=== PATIENT | male | born 1970 ===

== ENCOUNTER 2024-12-27 00:07 | Outpatient (RCR) | payer BC, SELFPAY ==
[2024-12-13 14:14] VITALS: BP 103/61; PULSE 70; RESP 18; TEMP 36.3; O2SAT 99
[2024-12-13] MEDS: Normal Saline Flush 10 ML SYR IVP (14:43)
[2024-12-25 09:30] LABS: Abs Immature Grans 0.02 10^3/uL (0.0-0.06); Absolute Basophil Count 0.07 10^3/uL (0.0-0.2); Absolute Eosinophil Count 0.46 10^3/uL (0.0-0.7); Absolute Monocyte Count 0.91 10^3/uL (0.1-0.8); Absolute Neutrophil Count 3.26 10^3/uL (1.2-6.7); Basophils % 1.1 %; Eosinophils % 6.9 %; HGB 13.3 g/dL (13.5-17.5); Immature Grans % 0.3 %; Lymphocytes % 28.7 %; MCH 31.8 pg (27.0-33.0); MCHC 33.3 % (32.0-36.0); MCV 96 fL (80-95); MPV 8.9 fL (8.0-11.0); Monocytes % 13.7 %; Neutrophils % 49.3 %; Platelet Count 357 10^3/uL (130-400); RBC 4.18 10^6/uL (4.36-5.78); RDW-SD 49.3 fL; WBC 6.62 10^3/uL (4.4-10.8)
[2024-12-25 10:55] LABS: ALT 54 U/L (16-63); AST 18 U/L (15-37); Albumin 3.6 g/dL (3.4-5.0); Alkaline Phosphatase 90 U/L (46-116); Anion Gap 5.6 mmol/L (3-11); BUN 19 mg/dL (7-18); Bilirubin, Total 0.9 mg/dL (0.2-1.0); CO2 28.4 mmol/L (21.0-32.0); CREATININE 0.9 mg/dL (0.70-1.30); Calcium 8.9 mg/dL (8.5-10.1); Chloride 104 mmol/L (98-107); Estimated GFR 102.76 (mL/min/1.73m2); Glucose 113 mg/dL (74-106); Sodium 138 mmol/L (136-145); Total Protein 7.2 g/dL (6.4-8.2)
[2024-12-25] MEDS: Normal Saline Flush 10 ML SYR IVP (11:10)
[2024-12-27 12:43] VITALS: BP 96/58; PULSE 61; RESP 16; TEMP 36.4; O2SAT 100
[2024-12-27] MEDS: Normal Saline Flush 10 ML SYR IVP (12:46)
== END 2025-01-05 23:59 | disposition home or self-care (01) ==
LOC: INF 00:07
PROVIDERS: Visit Provider Internal Medicine Hematology & Oncology
DX: C18.9 Malignant neoplasm of colon, unspecified (principal); Z45.2 Encounter for adjustment and management of vascular access device
CPT/HCPCS: 36591; 80053; 96523; 85025

== ENCOUNTER 2025-01-22 09:03 | Outpatient (REF) | payer BC, SELFPAY ==
[2025-01-22 09:31] LABS: Abs Immature Grans 0.02 10^3/uL (0.0-0.06); HCT 37.4 % (40.0-50.0); HGB 12.8 g/dL (13.5-17.5); Immature Grans % 0.3 %; MCH 32.2 pg (27.0-33.0); MCHC 34.2 % (32.0-36.0); MCV 94 fL (80-95); MPV 8.8 fL (8.0-11.0); Platelet Count 305 10^3/uL (130-400); RBC 3.98 10^6/uL (4.36-5.78); RDW 14.4 % (11.8-14.1); RDW-SD 48.7 fL; WBC 6.79 10^3/uL (4.4-10.8)
[2025-01-22 09:43] LABS: ALT 34 U/L (16-63); AST 20 U/L (15-37); Albumin 3.4 g/dL (3.4-5.0); Alkaline Phosphatase 86 U/L (46-116); Anion Gap 6.1 mmol/L (3-11); BUN 17 mg/dL (7-18); Bilirubin, Total 0.8 mg/dL (0.2-1.0); CO2 30.9 mmol/L (21.0-32.0); Calcium 9.1 mg/dL (8.5-10.1); Chloride 102 mmol/L (98-107); Estimated GFR 102.76 (mL/min/1.73m2); Glucose 105 mg/dL (74-106); Potassium 4.2 mmol/L (3.5-5.1); Sodium 139 mmol/L (136-145); Total Protein 6.8 g/dL (6.4-8.2)
== END 2025-01-22 09:04 | disposition home or self-care (01) ==
LOC: LBN 09:03
PROVIDERS: Visit Provider Internal Medicine Hematology & Oncology
DX: C18.9 Malignant neoplasm of colon, unspecified (principal)
CPT/HCPCS: 80053; 85025